=== PATIENT | male | born 1985 | race Hispanic/Latino ===

== ENCOUNTER 2017-12-05 15:50 | Emergency (ER) | payer OTHER ==
--- NOTE | 2017-12-05 17:36 | ED PDOC ---
HPI: Chest Pain Time Seen by Provider: 12/05/17 16:53 Chief Complaint (Nursing): Palpitations Chief Complaint (Provider): Chest Pain History Per: Patient History/Exam Limitations: no limitations Onset/Duration Of Symptoms: Days (x1) Current Symptoms Are (Timing): Still Present Additional Complaint(s): 32 y/o male with no significant pmhx presents to ER for evaluation of substernal pressure-like chest pain associated with tingling to the right arm and leg, shortness of breath, and feeling of dread onset at 1330 today. Patient says symptoms began while at rest and watching TV. He states he felt it may be a panic attack, but says hes never had one before. Patient states his symptoms have diminished in intensity, but are still present. Patient also reports a feeling of tightness in his chest and back. He says hes only tried to drink a bit of water, but denies taking any medication. He reports eating a [employer] breakfast sandwich 15 minutes prior to onset of his symptoms. Patients risk factors include smoking and a father with cardiac disease who at 50. He denies any increased stress in life. PMD: None provided Past Medical History Reviewed: Historical Data, Nursing Documentation, Vital Signs Vital Signs: Last Vital Signs Temp 98 F 12/05/17 17:23 Pulse 78 12/05/17 17:52 Resp 20 12/05/17 17:23 BP 124/82 12/05/17 17:23 Pulse Ox 98 12/05/17 19:03 - Medical History PMH: No Chronic Diseases - Surgical History Surgical History: No Surg Hx - Family History Family History: States: Hypertension, Other Other Family History: cardiac disease - Social History Current smoker - smoking cessation education provided: Yes (10 cigarettes per day) Alcohol: Social Drugs: Cannabis - Allergies Allergies/Adverse Reactions: Allergies Allergy/AdvReac Type Severity Reaction Status Date / Time No Known Allergies Allergy Verified 12/05/17 17:20 Review of Systems ROS Statement: Except As Marked, All Systems Reviewed And Found Negative Cardiovascular: Positive for: Chest Pain Respiratory: Positive for: Shortness of Breath Physical Exam - Reviewed Nursing Documentation Reviewed: Yes Vital Signs Reviewed: Yes - Physical Exam Appears: Negative for: No Acute Distress - Laboratory Results Result Diagrams: 12/05/17 17:30 12/05/17 17:30 - ECG O2 Sat by Pulse Oximetry: 98 (RA) Pulse Ox Interpretation: Normal Medical Decision Making Medical Decision Makin:20 Initial Impression: Chest pain with soft risk factors of cardiac disease ( smoking and cardiac history). Differential diagnoses include, but are not limited to reflux, costochondritis, anxiety, acute coronary syndrome. Plan: --EKG --BNP --CMP --Magnesium --Phosphorus --TSH --Troponin I --CBC --D Dimer --CXR --air sampling and monitoring --IV Insertion --Reevaluation EKG: sinus tachycardia at 106 bpm, normal QRS, normal ST segments Report Date : 12/05/2017 18:57:19 My Comment : HISTORY: chest pain COMPARISON: No prior. TECHNIQUE: Chest PA and lateral FINDINGS: LUNGS: No active pulmonary disease. PLEURA: No significant pleural effusion identified. No pneumothorax apparent. CARDIOVASCULAR: Normal. OSSEOUS STRUCTURES: No significant abnormalities. VISUALIZED UPPER ABDOMEN: Normal. OTHER FINDINGS: None. IMPRESSION: No active disease. 19:50 Repeat EKG: NSR at 61 bpm, normal QRS, normal ST segments Scribe Attestation: Documented by Shade Huerta, acting as a scribe for Maggie Sotomayor MD. Provider Scribe Attestation: All medical record entries made by the Scribe were at my direction and personally dictated by me. I have reviewed the chart and agree that the record accurately reflects my personal performance of the history, physical exam, medical decision making, and the department course for this patient. I have also personally directed, reviewed, and agree with the discharge instructions and disposition. Disposition - Disposition Forms: [facility] (Italian)
[2017-12-05 17:38] LABS: BASO # 0.1 K/uL (0.0-0.2); BASO % 1.1 % (0.0-2.0); EOS # 0.3 K/uL (0.0-0.7); EOS % 2.7 % (0.0-4.0); HEMOGLOBIN 15.8 g/dL (12.0-18.0); LYMPH # 2.1 K/uL (1.0-4.3); LYMPH % 17.7 % (20.0-40.0); MEAN CELL VOLUME 93.8 fl (80.0-94.0); MEAN CORPUSCULAR HEMOGLOBIN 31.8 pg (27.0-31.0); MEAN CORPUSCULAR HGB CONC 33.9 g/dL (33.0-37.0); MEAN PLATELET VOLUME 8.3 fl (7.2-11.7); MONO % 8.7 % (0.0-10.0); NEUT # 8.2 K/uL (1.8-7.0); NEUT % 69.8 % (50.0-75.0); NRBC % 0.1 % (0.0-0.0); RBC 4.98 Mil/uL (4.40-5.90); WHITE BLOOD COUNT 11.7 K/uL (4.8-10.8)
[2017-12-05 17:52] LABS: ALB/GLOB RATIO 1.3 (1.0-2.1); ALBUMIN 4.3 g/dL (3.5-5.0); ALT/SGPT 103 U/L (21-72); AST/SGOT 56 U/L (17-59); BLOOD UREA NITROGEN 13 mg/dl (9-20); CALCIUM 9.9 mg/dL (8.4-10.2); GFR AFRICAN-AMERICAN > 60; GFR NON-AFRICAN AMERICAN > 60
[2017-12-05 17:54] VITALS: PULSE 78
[2017-12-05 18:36] LABS: B-TYPE NATRIURETIC PEPTIDE < 11.1 pg/ml (0-450)
--- NOTE | 2017-12-05 18:58 | RAD ---
HISTORY: chest pain COMPARISON: No prior. TECHNIQUE: Chest PA and lateral FINDINGS: LUNGS: No active pulmonary disease. PLEURA: No significant pleural effusion identified. No pneumothorax apparent. CARDIOVASCULAR: Normal. OSSEOUS STRUCTURES: No significant abnormalities. VISUALIZED UPPER ABDOMEN: Normal. OTHER FINDINGS: None. IMPRESSION: No active disease.
[2017-12-05 21:16] VITALS: BP 126/80; RESP 16; TEMP 98.2; O2SAT 99
--- NOTE | 2017-12-06 22:43 | CARD ---
APPROVED REPORT EKG Measurement Heart [id number] [place] 142P61 [id number] <Conclusion> Normal sinus rhythm Normal ECG
--- NOTE | 2017-12-06 22:58 | CARD ---
APPROVED REPORT EKG Measurement Heart [id number] [place] 140P54 [id number] <Conclusion> Sinus tachycardia Otherwise normal ECG
== END 2017-12-05 21:15 | disposition home or self-care (01) ==
LOC: H.ER 15:50
DX: F41.9 Anxiety disorder, unspecified (principal); R07.89 Other chest pain; F17.210 Nicotine dependence, cigarettes, uncomplicated

== ENCOUNTER 2018-09-16 19:22 | Emergency (ER) | payer OTHER ==
[2018-09-16] MEDS ORDERED: Alum-Mag Hydrox-Simethicone Susp (30 mL) PO STA (21:35)
[2018-09-16] MEDS ORDERED: Sodium Chloride 0.9% 1,000 ML IV STA (21:38)
--- NOTE | 2018-09-16 21:40 | ED PDOC ---
HPI: General Adult Time Seen by Provider: 09/16/18 21:38 Chief Complaint (Nursing): Headache Chief Complaint (Provider): throat pain/collarbone pain History Per: Patient (33 y/o male with intermittent throat/collar pain since Wednesday noted initially upon awakening. Denies any SOB. Unclear association with any other factors. Intermittently feels discomfort worse with swallowing but unsure. No feves/chills. Seen at urgent care and sent to EDf or evaluation.) Past Medical History Reviewed: Historical Data, Nursing Documentation, Vital Signs Vital Signs: Last Vital Signs Temp 98.9 F 09/16/18 20:08 Pulse 90 09/16/18 20:08 Resp 16 09/16/18 20:08 BP 136/97 H 09/16/18 20:08 Pulse Ox 97 09/16/18 20:08 - Family History Family History: States: Hypertension - Home Medications Home Medications: Ambulatory Orders Medication Instructions Recorded Amoxicillin/Clavulanate [Augmentin 1 tab PO BID #20 tab 09/16/18 875 MG-125 MG] Ibuprofen [Motrin] 600 mg PO Q8 PRN #21 tab 09/16/18 - Allergies Allergies/Adverse Reactions: Allergies Allergy/AdvReac Type Severity Reaction Status Date / Time No Known Allergies Allergy Verified 09/16/18 20:07 Review of Systems ROS Statement: Except As Marked, All Systems Reviewed And Found Negative Physical Exam - Reviewed Nursing Documentation Reviewed: Yes Vital Signs Reviewed: Yes - Physical Exam Appears: Positive for: Well, Non-toxic, No Acute Distress Head Exam: Positive for: ATRAUMATIC, NORMAL INSPECTION, NORMOCEPHALIC Skin: Positive for: Normal Color, Warm, DRY Eye Exam: Positive for: EOMI, Normal appearance, PERRL ENT: Positive for: Normal ENT Inspection Neck: Positive for: Normal, Painless ROM Cardiovascular/Chest: Positive for: Regular Rate, Rhythm Respiratory: Positive for: CNT, Normal Breath Sounds Gastrointestinal/Abdominal: Positive for: Normal Exam, Soft Back: Positive for: Normal Inspection Extremity: Positive for: Normal ROM Neurological/Psych: Positive for: Awake, Alert, Normal Tone - Laboratory Results Result Diagrams: 09/16/18 22:10 09/16/18 22:10 - ECG ECG Rhythm: Positive for: Sinus Rhythm (nsr 68bpm; no ectopy no acute changes) O2 Sat by Pulse Oximetry: 97 - Progress ED Course And Treament: CT: SEVERAL BILATERAL UPPER NECK ENLARGED LYMPH NODES, PROBABLY REACTIVE DUE TO AN ONGOING INFECTION 2. SINUSITIS Disposition - Clinical Impression Clinical Impression: Sinusitis, Lymphadenopathy - Patient ED Disposition Is Patient to be Admitted: No - Disposition Disposition: Routine/Home Disposition Time: 23:38 Condition: FAIR Prescriptions: Amoxicillin/Clavulanate [Augmentin 875 MG-125 MG] 1 tab PO BID #20 tab Ibuprofen [Motrin] 600 mg PO Q8 PRN #21 tab PRN Reason: Pain, Moderate (4-7) Instructions: Sinusitis, Adult (DC), Lymphadenitis (DC)
[2018-09-16] MEDS ORDERED: Alum-Mag Hydrox-Simethicone Susp (30 mL) ONE (21:55)
[2018-09-16 22:14] LABS: BASO # 0.1 K/uL (0.0-0.2); BASO % 0.8 % (0.0-2.0); EOS # 0.3 K/uL (0.0-0.7); EOS % 2.9 % (0.0-4.0); HEMOGLOBIN 15.9 g/dL (12.0-18.0); LYMPH # 2.3 K/uL (1.0-4.3); LYMPH % 19.7 % (20.0-40.0); MEAN CELL VOLUME 95.4 fl (80.0-94.0); MEAN CORPUSCULAR HEMOGLOBIN 31.7 pg (27.0-31.0); MEAN CORPUSCULAR HGB CONC 33.3 g/dL (33.0-37.0); MEAN PLATELET VOLUME 8.8 fl (7.2-11.7); MONO % 8.3 % (0.0-10.0); NEUT % 68.3 % (50.0-75.0); NRBC % 0.1 % (0.0-0.0); RBC 5.01 Mil/uL (4.40-5.90); RED CELL DISTRIBUTION WIDTH 12.9 % (11.5-14.5); WHITE BLOOD COUNT 11.7 K/uL (4.8-10.8)
[2018-09-16 22:35] LABS: ALB/GLOB RATIO 1.4 (1.0-2.1); ALBUMIN 4.8 g/dL (3.5-5.0); ALT/SGPT 129 U/L (21-72); AST/SGOT 62 U/L (17-59); BLOOD UREA NITROGEN 12 mg/dl (9-20); CALCIUM 9.7 mg/dL (8.4-10.2); GFR NON-AFRICAN AMERICAN > 60; LIPASE 75 U/L (23-300)
[2018-09-16] MEDS ORDERED: Iohexol 300 100 ML IJ ONE (22:41)
[2018-09-16] MEDS ORDERED: Sodium Chloride 0.9% 50 ML IV ONE (22:41)
[2018-09-17 00:04] VITALS: BP 136/81; PULSE 70; RESP 18; TEMP 98.3; O2SAT 100
--- NOTE | 2018-09-17 08:43 | RAD ---
Date of service: 09/16/2018 HISTORY: routine COMPARISON: 12/05/2017 TECHNIQUE: Chest PA and lateral FINDINGS: LUNGS: No active pulmonary disease. PLEURA: No significant pleural effusion identified. No pneumothorax apparent. CARDIOVASCULAR: No aortic atherosclerotic calcification present. Normal cardiac size. No pulmonary vascular congestion. OSSEOUS STRUCTURES: No significant abnormalities. VISUALIZED UPPER ABDOMEN: Normal. OTHER FINDINGS: None. IMPRESSION: No active disease.
--- NOTE | 2018-09-17 12:20 | CARD ---
APPROVED REPORT Date of service: 09/16/2018 EKG Measurement Heart [id number] [place] [id number] <Conclusion> Normal sinus rhythm Normal ECG
--- NOTE | 2018-09-17 14:15 | CT ---
Date of service: 09/16/2018 PROCEDURE: CT NECK WITH CONTRAST HISTORY: throat pain COMPARISON: None available. TECHNIQUE: CT of the neck with intravenous contrast. Coronal and sagittal reformats generated. Intravenous contrast dose: 90 milliliters Radiation dose: Total exam DLP = 369.41 mGy-cm. This CT exam was performed using one or more of the following dose reduction techniques: Automated exposure control, adjustment of the mA and/or kV according to patient size, and/or use of iterative reconstruction technique. FINDINGS: NASOPHARYNX: No focal mass or inflammatory process is clearly seen in the nasopharynx. SUPRAHYOID NECK: There is some mild soft tissue swelling in the lingual tonsillar region without focal low density to suggest abscess. Findings may suggest mild pharyngitis or chronic lingual tonsillar enlargement. Correlation with physical exam is suggested. Tongue base region is unremarkable. Epiglottis is normal in outline without thickening. INFRAHYOID NECK: Unremarkable larynx, hypopharynx, and supraglottic space. Vocal cords intact. MASS: No appreciable mass is identified in the neck. GLANDS: Parotid and submandibular glands unremarkable. Normal size thyroid gland, without nodule. LYMPH NODES: There is evidence of mild nonspecific scattered level 2 lymph nodes many of which have normal appearing fatty hilar regions. These are more than likely reactive in origin. CERVICAL SPINE: No fracture or focal lesion. Degenerative disc disease is appreciated in the lower cervical spine region. VASCULAR STRUCTURES: Unremarkable. OTHER FINDINGS: Visualized brain is within normal limits. Thoracic inlet is unremarkable. Lung nelson are clear. IMPRESSION: No evidence of abscess. Mild nonspecific scattered probable reactive lymph nodes in the neck. Mild prominence of the lingual tonsils which may reflect pharyngitis and/or chronic lingual tonsillar enlargement. Small calcification is seen in the right lingual tonsillar region which may reflect prior chronic infection.
== END 2018-09-17 00:03 | disposition home or self-care (01) ==
LOC: H.ER 19:22
DX: J32.9 Chronic sinusitis, unspecified (principal); R59.9 Enlarged lymph nodes, unspecified
CPT/HCPCS: 70491; 71046; 80053; 80320; 83690; 84484; 85025; 87070; 87430; 93005; 96360; 96361; 99284; J7030; Q9967